=== PATIENT | female | born 1955 | race Caucasian/White ===

== ENCOUNTER → 2018-02-28 | Outpatient (CLI) | payer BC ==
[~2018-02-28] MED LIST: ACET325T9 PO; ALBU8.5H8 INH; CRESTOR20 MG PO; FLUT1DIS3 IH; HUM100VI5 SQ; INSU100I13 SQ; INSU100V8 SQ; MONT10TA6 PO; OLME5TAB4 PO; SERT50TA PO; WARF7.5T45 PO
--- NOTE | 2018-02-28 14:28 | RAD ---
Left shoulder ultrasound, 02/28/2018: HISTORY: Pain The area of clinical concern along the lateral aspect of the left shoulder was carefully scanned. No mass or abnormal fluid collection is seen. If clinical concern persists, MR scanning may be useful for further evaluation. Electronically signed by: Stefan Morales MD (02/28/2018 2:24 PM) [facility]
--- NOTE | 2018-02-28 16:22 | RAD ---
DATE: 02/28/2018 EXAM: DIGITAL DIAGNOSTIC LT, BREAST LEFT HISTORY: Left breast and axillary pain COMPARISON: 10/12/2017 This study was interpreted with the benefit of Computerized Aided Detection (CAD). Breast Density: FATTY The breast parenchyma is primarily fatty replaced. Breast parenchyma level density A. FINDINGS: No new or enlarging breast densities are seen. Minimal benign type calcification is present. No suspicious microcalcifications have developed. Left breast ultrasound, 02/28/2018: A targeted ultrasound exam of the left breast was performed in the upper aspect of the breast where the patient reports pain. Normal heterogeneous fibroglandular shadows are present. No solid mass or unusual fluid collection is seen. We also scanned the left axillary region. A 15 x 9 x 6 mm lymph node is identified. The noted is smooth and demonstrates a normal architecture. No abnormal left axillary finding was detected. IMPRESSION: 1. Stable left mammograms without evidence of malignancy. 2. The targeted left breast ultrasound reveals no abnormality. BI-RADS CATEGORY: 2 BENIGN FINDING(S) RECOMMENDED FOLLOW-UP: 12M 12 MONTH FOLLOW-UP PQRS compliance statement: Patient information was entered into a reminder system with a target due date for the next mammogram. Mammography is a sensitive method for finding small breast cancers, but it does not detect them all and is not a substitute for careful clinical examination. A negative mammogram does not negate a clinically suspicious finding and should not result in delay in biopsying a clinically suspicious abnormality. "Our facility is accredited by the [employer] Mammography [employer]."
== END | disposition home or self-care (01) ==
LOC: US 11:00
PROVIDERS: ATTEND Nurse Practitioner Adult Health
DX: M25.512 Pain in left shoulder (principal); N64.4 Mastodynia; R60.0 Localized edema
CPT/HCPCS: 76641; 76882; 77065

== ENCOUNTER → 2018-06-26 | Outpatient (CLI) | payer OTHER ==
[~2018-06-26] MED LIST changes: +ALBU2.5V8 INH; -ALBU8.5H8 INH; +INSU100I32 SQ; +INSU100V12 SQ; +METO-239 PO; +WARF-78 PO
--- NOTE | 2018-06-26 12:00 | RAD ---
EXAM: AP and lateral views right knee DATE: 06/26/2018 11:00 AM INDICATION: chronic rt knee pain COMPARISON: No Prior FINDINGS: No evidence of acute fracture or dislocation. Decreased bone mineral density. Moderate to severe tricompartmental joint space narrowing and osteophytes are seen. Small right knee joint effusion. Surgical clips projecting over the medial right knee. IMPRESSION: 1. Right knee joint osteoarthritis 2. No evidence of acute fracture or dislocation. 3. Small right knee joint effusion. Electronically signed by: Dominic Crowell MD (06/26/2018 11:55 AM) [id number]
== END | disposition home or self-care (01) ==
LOC: RAD 09:51
PROVIDERS: ATTEND Surgery
DX: M17.11 Unilateral primary osteoarthritis, right knee (principal); M25.461 Effusion, right knee; M25.761 Osteophyte, right knee
CPT/HCPCS: 73560

== ENCOUNTER → 2018-09-21 | Outpatient (CLI) | payer BC ==
--- NOTE | 2018-09-21 09:48 | RAD ---
CT Abdomen and Pelvis without contrast History: Left flank pain Technique: Noncontrast CT imaging was performed of the abdomen and pelvis. Multiplanar images are reviewed. Exposure: One or more of the following individualized dose reduction techniques were utilized for this examination: 1. Automated exposure control 2. Adjustment of the mA and/or kV according to patient size 3. Use of iterative reconstruction technique. Comparison: January 10, 2014 Findings: There is no significant abnormality of the limited visualized lung bases. Accurate evaluation of the abdominal visceral organs is limited without intravenous contrast. No obvious focal abnormality is identified of the liver, spleen, pancreas. There has been cholecystectomy in the interval. There is no hydronephrosis of either kidney. There is a small 0.1 to 0.2 cm inferior left renal calculus. There is no right renal calculus. There is again lobulated contour of the kidneys greater on the right. No ureteral calculus is identified on either side. There is no adrenal nodularity. Evaluation of bowel is somewhat limited without oral contrast. There is no bowel dilatation, free fluid, free air. Appendix is not confidently identified if still present. There is mild sigmoid diverticulosis, not associated with significant inflammatory type change. There is multilevel advanced lumbar degenerative disc disease, L1-2 least affected. There is multilevel lumbar facet degenerative change. There is likely degree of lateral recess stenosis at L3-4. There is multilevel variable mild lumbar neural foramina compromise. Impression: 1. There is tiny nonobstructive inferior left renal calculus, no hydronephrosis. 2. There is mild sigmoid diverticulosis, no evidence of diverticulitis. 2. There is multilevel lumbar degenerative disc disease. Electronically signed by: Miles Vazquez MD (09/21/2018 9:46 AM) [facility]
== END | disposition home or self-care (01) ==
LOC: CT 08:45
PROVIDERS: ATTEND Physician Assistant
DX: N20.0 Calculus of kidney (principal); K57.30 Diverticulosis of large intestine without perforation or abscess without bleeding; M51.36 Other intervertebral disc degeneration, lumbar region
CPT/HCPCS: 74176

== ENCOUNTER → 2019-06-26 | Outpatient (CLI) | payer BC ==
[~2019-06-26] MED LIST changes: +ALBU2.5V8 IH; +ASPI-630 PO; +METO50TA6 PO; -MONT10TA6 PO; +MONT10TA80 PO; +MULT-245 PO; +OLME20TA17 PO; +VIT1TABL32 PO
[2019-06-26 08:21] VITALS: BP 161/79
== END | disposition home or self-care (01) ==
LOC: SURG 08:02
PROVIDERS: ATTEND Anesthesiology Pain Medicine
DX: S93.335A Other dislocation of left foot, initial encounter (principal); I10 Essential (primary) hypertension; E11.9 Type 2 diabetes mellitus without complications; E78.5 Hyperlipidemia, unspecified; E66.01 Morbid (severe) obesity due to excess calories; M19.90 Unspecified osteoarthritis, unspecified site; Z79.899 Other long term (current) drug therapy; Z79.01 Long term (current) use of anticoagulants; X58.XXXA Exposure to other specified factors, initial encounter; Y93.89 Activity, other specified; Y92.89 Other specified places as the place of occurrence of the external cause; Y99.8 Other external cause status
CPT/HCPCS: 99204

== ENCOUNTER → 2019-07-07 | Outpatient (CLI) | payer BC ==
[2019-06-26 08:21] VITALS: BP 161/79
--- NOTE | 2019-07-07 11:44 | RAD ---
DATE: July 07, 2019 EXAM: MAMMO VERONIKA SCREENING BILATERAL HISTORY: Screening study. COMPARISON: 2018. This study was interpreted with the benefit of Computerized Aided Detection (CAD). 2-D digital mammographic views of both breasts were performed in the CC and MLO projections. 3-D digital tomosynthesis images of both breasts were performed in the CC and MLO projections and reviewed on a computer workstation. FINDINGS: Breast Density: FATTY The breast parenchyma is primarily fatty replaced. Breast parenchyma level density A.. There are no dominant suspicious masses, suspicious microcalcifications or evidence of architectural distortion. IMPRESSION: No mammographic indicators for malignancy. BI-RADS CATEGORY: 1 NEGATIVE RECOMMENDED FOLLOW-UP: 12M 12 MONTH FOLLOW-UP PQRS compliance statement: Patient information was entered into a reminder system with a target due date July 08, 2020 for the next mammogram. Mammography is a sensitive method for finding small breast cancers, but it does not detect them all and is not a substitute for careful clinical examination. A negative mammogram does not negate a clinically suspicious finding and should not result in delay in biopsying a clinically suspicious abnormality. "Our facility is accredited by the [employer] Mammography [employer]." The patient's breast density may affect the ability of mammography to detect breast cancer. There are 4 categories of breast density, A, B, C and D. Breast density A means that most of the breast tissue is replaced with adipose tissue and therefore is not dense. Breast density B means that the breast tissue is mildly dense and scattered. Breast density C means that the breast tissue is heterogeneously dense. Breast density D means that the breast tissue is very dense. Breast densities especially C and D may decrease the sensitivity of mammography to detect breast cancer. Therefore, the patient may benefit from 3-D breast mammography (3D breast tomography) as a part of their screening mammogram. Insurance may or may not pay for this additional imaging. The patient's breast density based on today's mammogram is category A.
== END | disposition home or self-care (01) ==
LOC: MAMMO 08:50
PROVIDERS: ATTEND Family Medicine
DX: Z12.31 Encounter for screening mammogram for malignant neoplasm of breast (principal)
CPT/HCPCS: 77063; 77067

== ENCOUNTER → 2020-03-24 | Outpatient (CLI) | payer BC ==
[2019-06-26 08:21] VITALS: BP 161/79
[~2020-03-24] MED LIST changes: -WARF-78 PO; +WARF5TAB2 PO
--- NOTE | 2020-03-24 17:09 | RAD ---
Ultrasound of the soft tissues of the neck HISTORY: R 22.9, lumps behind ears. Ultrasound was used to evaluate the soft tissues of the neck behind the ears bilaterally. A mass or lymph node is not identified by ultrasound. If the problem persists MRI or CT could be of benefit. IMPRESSION: 1. No mass or adenopathy noted behind the ears by ultrasound. Electronically signed by: Juliocesar Rubio MD (03/24/2020 5:06 PM) [id number]
== END ==
LOC: US 15:25
PROVIDERS: ATTEND Nurse Practitioner Adult Health
DX: R22.9 Localized swelling, mass and lump, unspecified (principal)
CPT/HCPCS: 76536